=== PATIENT | male | born 1990 | race Caucasian/White ===

== ENCOUNTER 2023-03-31 22:40 | Emergency (ER) | payer BC, SELFPAY ==
--- NOTE | 2023-03-31 | ECG_ITS ---
Test Reason : HIGH BP Blood Pressure : / mmHG Vent. Rate : 054 BPM Atrial Rate : 054 BPM P-R Int : 144 ms QRS Dur : 100 ms QT Int : 396 ms P-R-T Axes : 049 003 -01 degrees QTc Int : 375 ms Sinus bradycardia with occasional Premature ventricular complexes Minimal voltage criteria for LVH, may be normal variant ( R in aVL ) Borderline ECG No previous ECGs available Referred By: Generic ED Physician Electronically Signed By:KYRIE LAINEZ
[2023-03-31 22:44] VITALS: BP 191/121; PULSE 63; RESP 18; TEMP 36.8; O2SAT 98; BMI 28.7
--- NOTE | 2023-03-31 23:20 | MHC.EDTECH ---
Patient brought into triage area,EKG was taken and signed by provider. Labs were obtained and sent to lab. patient brought back to waiting area
[2023-03-31 23:24] LABS: MANUAL DIFF FLAG NO
[2023-03-31 23:27] LABS: Basophils Percent Auto 0.6 % (0-2); Eosinophils Absolute Auto 0.1 X10*3/uL (0.0-0.4); Eosinophils Percent Auto 1.8 % (0-4); Hematocrit 41.6 % (42.0-52.0); Hemoglobin 14.7 g/dl (14.0-18.0); Imm Gran Abs Auto 0.01 X10*3/uL (0.00-0.03); Imm Gran Pct Auto 0.1 % (0.0-0.4); Lymphocytes Absolute Auto 2.9 X10*3/uL (1.2-4.9); Lymphocytes Percent Auto 40.6 % (20-40); Mean Corpuscular HGB Conc 35.3 g/dl (31.0-36.0); Mean Corpuscular Hemoglobin 28.9 pg (27.0-33.0); Mean Corpuscular Volume 81.9 fL (80.0-98.0); Mean Platelet Volume 9.5 fL (9.4-12.4); Monocytes Absolute Auto 0.5 X10*3/uL (0.1-1.2); Monocytes Percent Auto 7.2 % (2-11); Neutrophils Absolute Auto 3.6 x10*3/uL (2.0-8.3); Neutrophils Percent Auto 49.7 % (45-73); Platelet Count 271 X10*3/uL (160-400); Red Blood Count 5.08 X10*6/uL (4.60-5.80); Red Cell Distribution Width 12.7 % (11.0-16.0); White Blood Count 7.2 X10*3/uL (4.8-10.8)
[2023-03-31 23:41] LABS: Alanine Aminotransferase 19 U/L (0-40); Albumin Level 4.6 g/dL (3.5-5.0); Alkaline Phosphatase 102 U/L (39-117); Anion Gap 15 (12-20); Aspartate Amino Transferase 25 U/L (5-37); Bilirubin Total 0.7 mg/dL (0.0-1.0); Blood Urea Nitrogen 15 mg/dL (9-16); Calcium 9.9 mg/dL (8.4-10.2); Carbon Dioxide 25 mmol/L (22-29); Chloride 103 mmol/L (96-108); Creatinine Clr Calc Pharmacy 119.6; Estimated Glomerular Filt Rate > 60; Glucose Random 95 mg/dL (60-115); Potassium 3.2 mmol/L (3.3-5.1); Sodium 140 mmol/L (135-145); Total Protein 8.3 g/dL (6.5-8.0)
[2023-03-31 23:55] LABS: Troponin-I High Sensitivity < 2.7 ng/L (<3.5-35.0)
[2023-04-01 05:16] VITALS: BP 170/113; PULSE 60; RESP 12; O2SAT 97
--- OUTSIDE RECORDS SUMMARY | 2023-04-01 05:25 | XMS_ITS | Continuity of Care Document ---
Author Name Unknown Organization [facility] ter Address [address] [place] [id number]- Care Team Providers Care Data Security Coordinator Name Role Phone Sidra Culp MD, Manish Primary Care [facility] En[facility] Date(s): 08/30/22 - 08/31/[address] [id number] Encounter Diagnosis Tonsillar bleed(Final) - 08/31/22 Discharge Disposition: A-D/C Home Attending Physician: Carisa Lawton MD Admitting Physician: Carisa Lawton MD Referring Physician: Not on Staff, Referring MD Allergies, Adverse Reactions, Alerts No Known Allergies Immunizations Given and Recorded Vaccine Date Status Refusal Reason Varicella Virus Vaccine 10/26/10 Given Varicella Virus Vaccine 06/08/07 Given Tet/Diphth/Acel, Pertussis (oldterm) 06/08/07 Give n Meningococcal Conjugate Vaccine 06/08/07 Given influenza virus vaccine, inactivated 06/08/07 Give n tetanus-diphtheria toxoids (Td) 1 03/14/05 Given Measles/Mumps/Rubella Virus Vaccine 12/26/96 Given Measles/Mumps/Rubella Virus Vaccine 11/08/93 Given Poliovirus Vaccine, Inactivated 12/26/96 Given Poliovirus Vaccine, Inactivated 06/02/93 Given Poliovirus Vaccine, Inactivated 04/07/93 Given Poliovirus Vaccine, Inactivated 01/21/93 Given Diphth/Pertussis, Whl Cell/Tet(oldterm) 12/26/96 G iven Diphth/Pertussis, Whl Cell/Tet(oldterm) 02/01/94 G iven Diphth/Pertussis, Whl Cell/Tet(oldterm) 06/02/93 G iven Diphth/Pertussis, Whl Cell/Tet(oldterm) 04/07/93 G iven Diphth/Pertussis, Whl Cell/Tet(oldterm) 01/21/93 G iven Hepatitis B Vaccine (old term) 11/04/96 Given Hepatitis B Vaccine (old term) 07/28/96 Given Hepatitis B Vaccine (old term) 06/25/96 Given Haemophilus B Conj Vaccine (oldterm) 02/01/94 Give n Haemophilus B Conj Vaccine (oldterm) 06/02/93 Give n Haemophilus B Conj Vaccine (oldterm) 04/07/93 Give n Haemophilus B Conj Vaccine (oldterm) 01/21/93 Give n 1Admin Note: TD Medications Rima -D 24 Hour 1 tablet, By Mouth, Daily in AM, 0 Refills, Maintenance, 08/22/22 10:02:00 EDT, Partial fill upon patient request if the prescription is for a schedule II opioid drug. Start Date: 08/22/22 Status: Ordered Problem List Condition Confirmation Course Effective Dates Status Health St atus Informant Well adult Confirmed Active Vital Signs Most recent to oldest [Reference Range]: 1 2 3 Height 170 cm (08/30/22 11:45 PM) 170 cm (08/30/22 10:57 PM) Weight 77.9 kg (08/30/22 11:45 PM) 77.9 kg (08/30/22 10:57 PM) Oxygen Saturation [94-100 %] 98 % (08/31/22 4:15 AM) 98 % (08/31/22 4:00 AM) 98 % (08/31/22 3:45 AM) Pulse Rate [55-90 bpm] 96 bpm *H* (08/30/22 11:45 PM) 82 bpm (08/30/22 11:20 PM) 79 bpm (08/30/22 10:57 PM) Body Mass Index [18.5-24.99 kg/m2] 26.96 kg/m2 *H* (08/30/22 11:45 PM) 26.96 kg/m2 *H* (08/30/22 10:57 PM) Blood Pressure [90-138/55-84 mm Hg] 153/116mm Hg *H* (08/31/22 4:15 AM) 156/119mm Hg *H* (08/31/22 4:00 AM) 135/104mm Hg (08/31/22 3:45 AM) Respiratory Rate [16-30 br/min] 13 br/min *L* (08/31/22 4:15 AM) 15 br/min *L* (08/31/22 4:00 AM) 11 br/min *L* (08/31/22 3:45 AM) Temperature [96.8-100.4 DegF] 97.1 DegF (08/31/22 1:45 AM) 98.4 DegF (08/30/22 11:45 PM) 98.5 DegF (08/30/22 10:57 PM) Liters per Minute 6 L/min (08/31/22 2:00 AM) 6 L/min (08/31/22 1:45 AM) Mode of Delivery (Oxygen) Room air (08/31/22 4:15 AM) Room air (08/31/22 4:00 AM) Room air (08/31/22 3:45 AM) Blood pressure sites Arm, left (08/31/22 4:15 AM) Arm, left (08/31/22 4:00 AM) Arm, left (08/31/22 3:45 AM) Temperature Route Temporal (08/31/22 1:45 AM) Temporal (08/30/22 11:45 PM) Oral (08/30/22 10:57 PM) Weight Obtained Via Standing scale (08/30/22 10:57 PM) Hospital Progress note * Andie Gongora RN: PERFORM, SIGN, VERIFY Event Display: Progress Note Hospital Authored Date: Patient: DENNISE LEWIS Age: 31 years Sex: Male : 1990 Associated Diagnoses: None Author: Andie Gongora RN Findings Narrative/Incidental pt complaining of swollen tongue on the left. anesthesiologist DR Chilel called to come assess pt at bedside. DR Chilel is at bedside assessing pt. pt is cleared to be discharged. . Discharge Information Case Management Discharge Plan : Case Management Discharge Plan Data 08/31/2022 3:53 EDT Discharge Level of Care at Discharge Home/Long Term/Foster Care 08/25/2022 12:32 EDT Discharge Level of Care at Discharge Home/Long Term/Foster Care Note * Andie Gongora RN: PERFORM Event Display: Discharge/Transfer Note Hospital Authored Date: [id number] Nursing Discharge Note Entered On: 08/31/2022 3:53 EDT Performed On: 08/31/2022 3:53 EDT by Andie Gongora RN Nursing Discharge Note 2 Discharge Level of Care at Discharge : Home/Long Term/Foster Care Patient Left Unit Via : Wheelchair Patient Accompanied Off Unit with : Responsible adult DC Instructions Provided & Signed by Pt : Yes Patient Understands D/C Instructions : Yes Verbalized Understanding of D/C Plan By : Responsible adult Patient Instructions Discharge Signed : Yes Did Pt have Specialty Bed or Wound Vac : No Andie Gongora RN - 08/31/2022 3:53 EDT * Andie Gongora RN: PERFORM Event Display: Patient Education/Instruction Authored Date: [id number] Inpatient Adult Discharge Instructions [address] [address] Name: DENNISE LEWIS : 1990 Visit: 08/30/2022 22:51:00 Current Date: 08/31/2022 03:57 Account: [id number] Inpatient Adult Discharge Instructions We would like to thank you for allowing us to assist you with your healthcare needs. The following includes patient education materials and information regarding your injury/illness. Our entire staffstrives to provide an excellent experience for our patients and their families. PLEASE ENSURE YOU FOLLOW-UP PER THE INSTRUCTIONS BELOW! ?? YOUR OPINION IS IMPORTANT TO US! Please complete the survey you may receive by mail or email. Your feedback will be used to make improvements to the healthcare experiences of our patients and their families. Surveys are administered by [employer] ?? If further treatment with your primary care physician or another doctor is recommended, it is important for you to keep the appointment. Call your primary care physician or return to the Emergency Department immediately if your condition worsens, fails to improve, or new symptoms develop. If you need to find a doctor, you can call [facility] TV [employer] App for a referral at [phone] or toll free at [phone]) or log in to [email or web address].. ?? You can view and manage your care through the patient portal or by using a health care ciera of your choosing. [employer] is a website that allows you to securely view your medical information including your hospital discharge summary, office visit summaries, medications and follow-up visits. You can also request appointments, renew medications, and request access to your medical information using a health care ciera of your choosing, or just ask a question. You can enroll at [email or web address] or register during your next office visit. You have been discharged from [facility], Patient Care Unit: [facility]. If you have any questions regarding these instructions after you leave, please call us and we will be happy to assist you. [facility] Your Care Team Attending Physician Jered FRIEDMAN, Carisa Discharging Providers Jered FRIEDMAN, Carisa Reason for Your Visit General medical, Post surgical problem Your Diagnosis General medical Post surgical problem Tests Performed Below is a partial list of the tests performed during your hospitalization. You may have had other tests and procedures not included in this list. Please discuss all test results with your provider. Basic Metabolic Panel CBC w/ Differential COVID-19 (Novel Coronavirus), Rapid PCR Type and Screen Primary Care Provider Sidra Culp MD, Manish Advance Directive . Discharge Vitals Temperature: 97.1 DegF Height: 170 cm Pulse Rate:??96 bpm??High Weight: 77.9 kg Respiratory Rate:??15 br/min??Low Body Mass Index:??26.96 kg/m2??High Systolic Blood Pressure:??150 mm Hg??High Body surface area: 1.92 Diastolic Blood Pressure:??98 mm Hg??High ?? Oxygen Saturation: 100 % ?? Studies Pending All tests and labs ordered during this hospital stay have been completed unless listed below. Please discuss all pending results with your provider listed above in these instructions. ?? No incomplete studies found What to do next Instructions From Your Doctor Discharge Orders You Need to Schedule the Following Appointments Follow Up with??Carisa Lawton When:??Within 1-2 day: call to discuss follow up visit Why: follow up in 4 weeks Follow Up with??Manish Culp When:??In 0 days Where: [address] [place] [address], [place] [address]- Business (1) Discharge Medications DENNISE LEWIS :1990 Visit Date:08/30/2022 Medications: Please continue your medications until treatment is completed or stopped by your provider. Medications not listed below should be discontinued. Discuss any questions related to medications with your provider. What How Much When Instructions Next Dose Unchanged Fexofenadine-Pseudoephedrine (Rima -D 24 Hour) 1 tab(s) Oral Daily in the morning Test Results Below is a partial list of the most recent Laboratory test results done prior to this discharge. You may have had other tests and procedures not included in this list. Please discuss all test resultswith your provider. Basic Metabolic Panel (08/30/2022) ???Sodium - 139 mmol/L???Potassium - 3.7 mmol/L???Chloride - 101 mmol/L???Bicarbonate Level - 25 mmol/L???Anion Gap - 13???Glucose Level - 95 mg/dL???BUN - 16 mg/dL???Creatinine-Blood - 1.0 mg/dL???Estimated GFR Creatinine - 106 ML/MIN/1.73 M2???Calcium - 9.9 mg/dL CBC w/ Differential (08/30/2022) ???WBC - 10.5 k/mm3???RBC - 4.87 m/mm3???Hgb - 14.2 Gm/dL???Hct - 41.3 %???MCV - 84.8 femtoliters???MCH - 29.2 pg???MCHC - 34.4 g/dL???Platelet Count - 383 k/mm3???RDW-SD - 36.9 femtoliters???MPV - 9.4 femtoliters???Nucleated RBC (Automated) - 0.0 #/100 WBC'S???Abs. NRBC - 0.0 k/mm3???Abs. Neut - 6.0 k/mm3???Abs. Lymph - 3.0 k/mm3???Abs. [place] - 0.9 k/mm3???Abs. Eo - 0.6 k/mm3???Abs. Baso - 0.1 k/mm3???Neut % - 56.8 %???Lymph % - 28.3 %???[place] % - 8.7 %???Eos % - 5.5 %???Baso % - 0.5 %???Imm Gran - 0.2 %???Abs. Imm Gran - 0.0 k/mm3 COVID-19 (Novel Coronavirus), Rapid PCR (08/30/2022) ???COVID-19 by RT-PCR - NEGATIVE Type and Screen (08/30/2022) ???Blood Type - O Positive???Antibody Screen - Negative Allergies (NKA means No Known Allergies) NKA Problems Active Problems??(1) Well adult?? Education Materials Below is the list of Educational Leaflet Providered with your Discharge Instructions. Tonsillectomy, Post-Op Bleeding?? Valuables and Belongings I fully understand and agree that [facility] accepts no responsibility for all my personal property including clothing, toilet articles, radios, jewelry, dentures, hearing aids, rings, money, or any other property that is in my possession or is brought to me after admission. I understand certain valuables may be placed in a hospital safe for a short period of time. I understand that the hospital is not liable for loss or damage due to accident, fire, or other natural occurrence while said property is in the safe. I accept full responsibility for any personal property that I keep with me, and will not hold the hospital responsible in case of loss or disappearance. I acknowledge that i have been encouraged to send valuables and belongings home. ?? Date for Pt to Sign Valuables/Belongings: 08/30/22 23:25:00 ?? Other Discharge Information ? Case Management Discharge Plan?? Discharge Plan?? Discharge Level of Care at Discharge: Home/Long Term/Foster Care ?? Pulmonary Rehab Status?? Pulmonary Rehab Discharge Status?? Respiratory Rate:??15 br/min??Low ? Common Emergency Awareness Tips IS IT A STROKE? Act FAST and Check for these signs: FACE Does the face look uneven? ARM Does one arm drift down? SPEECH Does their speech sound strange? TIME Call at any sign of stroke ?? Heart Attack Signs Chest discomfort: Most heart attacks involve discomfort in the center of the chest and lasts more than a few minutes, or goes away and comes back. It can feel like uncomfortable pressure, squeezing, fullness or pain. Discomfort in upper body: Symptoms can include pain or discomfort in one or both arms, back, neck, jaw or stomach. Shortness of breath: With or without discomfort. Other signs: Breaking out in a cold sweat, nausea, or lightheaded. Remember, MINUTES DO MATTER. If you experience any of these heart attack warning signs, call to get immediate medical attention! ?? Smoking can increase your chances of developing chronic health problems and can cause harmful effects to other family members in your house. If you smoke, you are strongly encouraged to quit. Please call [facility] Link at [phone] or [phone]) or log in to [email or web address] for referrals to smoking cessation programs. ?? 020 Suicide & Crisis Lifeline is available 24/10 if you or someone you know needs to find a reason to keep living. By calling 326 you'll be connected to a skilled, trained counselor at a crisis center in your area. INPATIENT DISCHARGE INSTRUCTIONS SIGNATURE JAYA LEWIS DENNISE Location:[facility] Registration Date and Time:08/30/2022 22:51 EDT Primary Care Physician: Sidra Culp MD, Manish, Attending Physician: Carisa Lawton MD, I DENNISE LEWIS, have received the above patient education materials/instructions and have verbalized understanding. If ambulance or transport services are being used I further acknowledge being given a choice of service. ?? If you need to contact me, please call me at this number: . 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 [id number] Tonsillectomy, Post-Op Bleeding You have had surgery to remove your tonsils. Bleeding at the surgery site can happen after surgery.The healthcare provider can often control it using direct pressure or applying medicine to shrink the blood vessels. If this fails, you will need to return to the operating room for further treatment. Notify your healthcare provider at once or return to this hospital or surgical center if there aresigns of any further bleeding. Home care ??? Your throat will be sore. Throat pain after surgery improves over the first 7 to 10 days. It's normal to have more pain at the end of the first week before it finally goes away. ??? Soft foods will be easier to swallow. ??? Drink plenty of fluids to prevent dehydration. Fluids also help ease pain by keeping the area moist. You must continue to drink even though your throat hurts. ??? For pain relief, suck on ice cubes or frozen fruit pops, eat ice cream or sherbet, and drink cold liquids. ??? You may also use liquid acetaminophen. Don't take ibuprofen or aspirin. These may increase bleeding risk. Talk with your healthcare provider before taking acetaminophen if you have a history of chronic kidney or liver disease. If your healthcare provider??has prescribed pain medicine, take it as directed.? If you have sleep apnea, talk with your healthcare provider before taking any opioid medicines or medicine with codeine. ??? If antibiotics were prescribed, take these as dire cted until they are gone. ??? Don't overheat your home because it dries the air and may irritate throat tissues, especially at night. A cool-mist humidifier in the bedroom may help. ??? Don???t have contact with??people with colds or the flu during the recovery period. You may be more likely to getill during this time. ??? Smoking irritates the surgery site. If you smoke, this is a good time to stop. Talk with your healthcare provider about help with quitting. ??? Don't do heavy??exercise,??lifting, or straining for 2 weeks, or as directed by your healthcare provider. ?? Follow-up care Follow up with your healthcare provider as advised. ?? When to seek medical advice Call your healthcare provider right away if any of the following occur: ??? Nausea and vomiting ??? Persistent coughing ??? Minimal bleeding from the mouth ??? Fever of??100.4??F (38.3??C) or higher, or as directed by your healthcare provider ??? Increasing pain not controlled by pain medicines ??? Signs of dehydration: very dark urine, less urine, dry mouth Call 911 Call 911 if you have any of these symptoms: ??? Trouble speaking, swallowing, or breathing ??? Significant bleeding from the mouth ??? Lightheadedness, weakness ?? Last Reviewed Date: 2022 ?? 4527-7284 The [employer]. All rights reserved. This information is not intended as a substitute for professional medical care. Always follow your healthcare professional's instructions. ?? Patient Care team information Care Team Personnel Name: Manish Ambriz MD Position: S Outreach Member Role: PCP Address: Address: [address] [place] [address]- Name: Aletha Bull DO Position: [facility] Resident Member Role: ED Resident Address: Address: [address] [place] [address] [place] [address]- Name: Ariadna Denney RN Position: [facility] ED RN W/OE and Tasks Member Role: Patient Care Provider Name: Roman Estrada MD Position: [facility] ED Medicine MD Address: Address: [address] [place] [address]- Care Team Related Persons Name: NOLVIA AVINA Address: home [address] [place] [id number]
--- OUTSIDE RECORDS SUMMARY | 2023-04-01 05:25 | XMS_ITS | Continuity of Care Document ---
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 Name Role Phone Edy Quintana Primary Care Physician [phone] Encounter [facility] Date(s): 08/24/22 - 08/25/[address] [id number] Discharge Disposition: A-D/C Home Attending Physician: Ever Lindo MD, I Admitting Physician: Ever Lindo MD, I Referring Physician: Ever Lindo MD, I Allergies, Adverse Reactions, Alerts No Known Allergies [...] oldest [Reference Range]: 1 2 3 Height 170.1 cm (08/25/22 3:32 AM) 170.1 cm (08/24/22 11:46 PM) 170.1 cm (08/24/22 8:49 PM) Weight 78.2 kg (08/24/22 12:20 PM) 76.8 kg (08/22/22 10:15 AM) Oxygen Saturation [94-100 %] 99 % (08/25/22 11:00 AM) 100 % (08/25/22 7:00 AM) 99 % (08/25/22 3:32 AM) Pulse Rate [55-90 bpm] 88 bpm (08/25/22 11:00 AM) 96 bpm *H* (08/25/22 7:00 AM) 97 bpm *H* (08/25/22 3:32 AM) Body Mass Index [18.5-24.99 kg/m2] 27.03 kg/m2 *H* (08/24/22 12:20 PM) 26.54 kg/m2 *H* (08/22/22 10:15 AM) Blood Pressure [90-138/55-84 mm Hg] 138/77mm Hg (08/25/22 11:00 AM) 134/75mm Hg (08/25/22 7:00 AM) 132/86mm Hg (08/25/22 3:32 AM) Respiratory Rate [16-30 br/min] 18 br/min (08/25/22 11:00 AM) 18 br/min (08/25/22 7:00 AM) 18 br/min (08/25/22 3:32 AM) Temperature [96.8-100.4 DegF] 99.0 DegF (08/25/22 11:00 AM) 98.3 DegF (08/25/22 7:00 AM) 98 DegF (08/25/22 3:32 AM) Liters per Minute 2 L/min (08/24/22 3:45 PM) 2 L/min (08/24/22 3:30 PM) 5 L/min (08/24/22 2:45 PM) Mode of Delivery (Oxygen) Room air (08/25/22 11:00 AM) Room air (08/25/22 7:00 AM) Room air (08/25/22 3:32 AM) Blood pressure sites Arm, left (08/25/22 11:00 AM) Arm, left (08/25/22 7:00 AM) Arm, left (08/25/22 3:32 AM) Temperature Route Oral (08/25/22 11:00 AM) Oral (08/25/22 7:00 AM) Oral (08/25/22 3:32 AM) Dry Weight 78.2 kg (08/24/22 12:20 PM) 76.8 kg (08/22/22 10:15 AM) Weight Obtained Via Standing scale (08/24/22 12:20 PM) Patient/family stated (08/22/22 10:15 AM) Dry Weight Obtained Via Standing scale (08/24/22 12:20 PM) Patient/family stated (08/22/22 10:15 AM) History and physical note * Event Display: History and Physical Hospital Authored Date: Note * Event Display: Adult Preadmission Health Questionnaire Authored Date: * Amber Cash RN: PERFORM Event Display: Discharge/Transfer Note Hospital Authored Date: [id number] Nursing Discharge Note Entered On: 08/25/2022 12:32 EDT Performed On: 08/25/2022 12:32 EDT by Ambre Cash RN Nursing Discharge Note 2 Discharge Time : 08/25/2022 12:32 EDT Discharge Level of Care at Discharge : Home/Fdc/Foster Care Patient Left Unit Via : Ambulatory Patient Accompanied Off Unit with : Significant other DC Instructions Provided & Signed by Pt : Yes Patient Understands D/C Instructions : Yes Patient Instructions Discharge Signed : Yes Did Pt have Specialty Bed or Wound Vac : No Shreya SCHAFER, Amber - 08/25/2022 12:32 EDT * Cindy Jenkins RN: PERFORM Event Display: Patient Education/Instruction Authored Date: Inpatient Adult Discharge Instructions [address] [address] Name: DENNISE LEWIS : 1990 Visit: 08/24/2022 11:31:00 Current Date: 08/25/2022 11:41 Account: [id number] Inpatient Adult Discharge Instructions We would like [...] and their families. Surveys are administered by [employer] ?? If further treatment with your primary care physician or another doctor is recommended, it is important for you to keep the appointment. Call your primary care physician or return to the Emergency Department immediately if your condition worsens, fails to improve, or new symptoms develop. If you need to find a doctor, you can call [facility] [employer] for a referral at [phone] or toll free at [phone] ([phone]) or log in to [email or web address].. ?? You can view and manage your care through the patient portal or by using a health care ciera of your choosing. [employer] is a website that allows you to securely view your medical information including your hospital discharge summary, office visit summaries, medications and follow-up visits. You can also request appointments, renew medications, and request access to your medical information using a health care ciera of your choosing, or just ask a question. You can enroll at [email or web address] or register during your next office visit. You have been discharged from [facility], Patient Care Unit: SW6. If you have any questions regarding these instructions after you leave, please call us and we will be happy to assist you. [facility] Your Care Team Attending Physician Belgica FRIEDMAN, Ever Guadalupe Consulting Providers Belgica FRIEDMAN, Ever Guadalupe Discharging Providers Judge WHITLOCK, Isabel Cartagena Reason for Your Visit OBSTRUCTIVE SLEEP APNEAOVN DS CS Tests Performed Below is a partial list of the tests performed during your hospitalization. You may have had other tests and procedures not included in this list. Please discuss all test results with your provider. Primary Care Provider Edy Quintana Advance Directive . Discharge Vitals Temperature: 99 DegF Height: 170.1 cm Pulse Rate: 88 bpm Weight: 78.2 kg Respiratory Rate: 18 br/min Body Mass Index:??27.03 kg/m2??High Systolic Blood Pressure: 138 mm Hg Body surface area: 1.92 Diastolic Blood Pressure: 77 mm Hg ?? Oxygen Saturation: 99 % ?? Studies Pending All tests and labs ordered during this hospital stay have been completed unless listed below. Please discuss all pending results with your provider listed above in these instructions. ?? Pathology Tissue Request () What to do next Instructions From Your Doctor Discharge Orders Discharge Medications DENNISE LEWIS :1990 Visit Date:08/24/2022 Medications: Please continue your medications until treatment is completed or stopped by your provider. Medications not listed below should be discontinued. Discuss any questions related to medications with your provider. What How Much When Instructions Next Dose Unchanged Fexofenadine-Pseudoephedrine (Rima -D 24 Hour) 1 tab(s) Oral Daily in the morning 8am 08/26 Test Results Below is a partial list of the most recent Laboratory test results done prior to this discharge. You may have had other tests and procedures not included in this list. Please discuss all test resultswith your provider. Allergies (NKA means No Known Allergies) NKA Problems Active Problems??(1) Well adult?? Education Materials Below is the list of Educational Leaflet Providered with your Discharge Instructions. Valuables and Belongings I fully understand and agree that [facility] accepts no responsibility for all my [...] to send valuables and belongings home. ?? Review of Valuable and Belonging List: With patient Date for Pt to Sign Valuables/Belongings: 08/24/22 17:48:00 ?? Other Discharge Information ? Pulmonary Rehab Status?? Pulmonary Rehab Discharge Status?? Respiratory Rate: 18 br/min ? Common Emergency Awareness Tips IS IT [...] are strongly encouraged to quit. Please call [facility] [employer] [facility] at [phone] or [phone] ([phone]) or log in to [email or web address] for referrals to smoking cessation programs. ?? 988 Suicide & Crisis Lifeline is available 24/10 if you or someone you know needs to find a reason to keep living. By calling 508 you'll be connected to a skilled, trained counselor at a crisis center in your area. INPATIENT DISCHARGE INSTRUCTIONS SIGNATURE PAGE DENNISE LEWIS Location:[facility] Registration Date and Time:08/24/2022 11:31 EDT Primary Care Physician: Eyd Quintaan, Attending Physician: Ever Lindo MD, I, I DENNISE LEWIS, have received the above patient education materials/instructions and have verbalized understanding. If ambulance or transport services are being used I further acknowledge being given a choice of service. ?? If you need to contact me, please call me at this number: . Patient/Early Childhood Associate Teacher Name: Patient/Early Childhood Associate Teacher Signature: Relationship to Patient: Witness Name/Signature: Date: Hospital Progress note * Cindy Jenkins RN: PERFORM, SIGN, VERIFY Event Display: Progress Note Hospital Authored Date: Patient: DENNISE LEWIS Age: 31 years Sex: Male : 1990 Associated Diagnoses: None Author: Cindy Jenkins RN Findings Problem Related to Alteration in Comfort : Alteration in Comfort/new 08/25/2022 12:43 EDT Alteration in Comfort Related to Surgery Goals & Outcomes: Comfort Pt will report acceptable level of comfort & pain control, Pt will state importance of adhering to pain strategy regime, Pt will demonstrate necessary skills to manage pain Interventions Implemented: Comfort Assess pain using appropriate pain scale/tools, Assess aggravating factors & prevent them accordingly, Assess alleviating factors & promote them accordingly BH Goals/Interventions, Comfort Yes Comfort, Problem Start 08/24/2022 18:27 Reviewed plan with, Comfort Patient Patient Progression, Comfort Pt progressing according to plan Comfort, Problem Ongoing Yes . Evaluation Alert and oriented times 3. Pt up ad fritz in room. Pt is steady on his feet. Tolerated diet. Voids in the urinal. Rates pain 2/10. Discharge instructions reviewed with pt verbalizing undersanding and acceptance of info. PRN angio removed prior to discharge. * Amber Cash RN: PERFORM, SIGN, VERIFY Event Display: Progress Note Hospital Authored Date: Patient: DENNISE LEWIS Age: 31 years Sex: Male : 1990 Associated Diagnoses: None Author: Amber Cash RN Findings Narrative/Incidental DC instructions given to the pt ,DC accompanied by family ,ambulatory * Isabel Alves: PERFORM, SIGN, VERIFY Event Display: Progress Note Hospital Authored Date: [id number] Patient: DENNISE LEWIS Age: 31 years Sex: Male : 1990 Associated Diagnoses: None Author: Isabel Alves 31-year-old male, with history of severe KARINE, admitted s/p tonsillectomy on 08/24/[address] Lindo. Patient is doing well postoperatively. No significant desaturations overnight. Pain is well controlled with OTC anagelics. He is tolerating PO well. No oral cavity bleeding or dyspnea. VSS. No acuteconcerns this AM. Review of Systems Per HPI Physical Examination Temperature 98.3 (07:17) Systolic Blood Pressure 134 (07:17) Diastolic Blood Pressure 75 (07:17) Pulse 96 (07:17) SpO2 100 (07:17) Respiratory Rate 18 (07:17) Constitutional: Alert, in no distress. Resting comfortably in bed. Mental Status: Oriented to person, place and time. Head: Normocephalic, atraumatic. Ear, Nose and Throat: Surgical site healing as expected. No signs of bleeding. Mucous membranes moist. Trachea midline. Neck: Supple, full range of motion. Psychiatric: Normal mood and affect Impression and Plan 31-year-old male, with history of severe KARINE, admitted s/p tonsillectomy on 08/24/[address] Lindo. Patient is doing well postoperatively. Recommended advancing to soft diet as tolerated for the next 2 weeks. Recommended alternating acetaminophen and ibuprofen. Patient should avoid any exertion, be nding, lifting, or straining x 2 weeks postoperatively. He will be discharged today. Counseled to visit the emergency department with any concerns for bleeding. All questions asked were answered. Patient Care team information Care Team Personnel Name: Edy Quintana Position: S Outreach Member Role: PCP Address: Address: [address] [place] [id number]- Care Team Related Persons Name: NOLVIA AVINA Address: home [address] [place] [id number]
--- NOTE | 2023-04-01 05:37 | ED_ITS ---
HPI - General Adult General Chief complaint: General Medical Stated complaint: High blood pressure Time Seen by Provider: 04/01/23 05:31 Source: patient Mode of arrival: ambulatory Limitations: no limitations History of Present Illness HPI narrative: Patient comes to the emergency room accompanied by his . Patient complaining of high blood pressure. Patient states that he has had intermittent headaches, none today or yesterday. Denies any chest pain or shortness of breath, no visual changes. Patient states that since August when he had his tonsillectomy surgery done, he was told that his blood pressure was high. Patient has been trying to lose weight and to exercise to control the blood pressure. However he has not been checking it. Yesterday, patient but a blood pressure monitor, it read very high numbers. He tested the new monitor on his and several family members, all of their blood pressures were normal except his which were close to 200. Therefore he came to the hospital. Related Data Previous Rx's Medication Instructions Recorded amlodipine 10 mg tablet 10 mg PO DAILY #30 tabs 04/01/23 hydrochlorothiazide 12.5 mg tablet 12.5 mg PO DAILY #30 tabs 04/01/23 Allergies Allergy/AdvReac Type Severity Reaction Status Date / Time No Known Allergies Allergy Unverified 12/19/19 18:33 Review of Systems 2 Review of Systems: Constitutional : No Weight loss, No Fever, No Chills, No Night Sweats, No Fatigue, No Malaise ENT/Mouth : No Hearing loss, No Ear Pain, No Nasal Congestion, No Sinus Pain, No Hoarseness, No sore throat, No Rhinorrhea, No Swallowing Difficulty Eyes: No Eye Pain, No Swelling, No Redness, No Foreign Body, No Discharge, No Vision Changes Cardiovascular : No Chest Pain, No SOB, No Dyspnea on Exertion, No Orthopnea, No Edema, No Palpitations, complaining of high blood pressure Respiratory : No Cough, No Sputum, No Wheezing, No Smoke Exposure, No Dyspnea Gastrointestinal : No Nausea, No Vomiting, No Diarrhea, No Constipation, No abdominal Pain, No Hematochezia, No Melena Genitourinary : no irregular bleeding, No Dysuria, No Urinary Frequency, No Hematuria, No Urinary Incontinence, No Urgency, No Flank Pain, No Urinary Flow Changes, No Hesitancy Musculoskeletal : No joint pain, No Myalgias, No Joint Swelling Skin : No Skin Lesions, No rash Neuro : No Weakness, No Numbness, No Paresthesias, No Loss of Consciousness, No Dizziness, No Headache Psych : No Anxiety/Panic, No Depression, No SI/HI/AH/VH, No Social Issues, Heme/Lymph: No Bruising, No Bleeding,No Lymphadenopathy Endocrine : No Polyuria, No Polydipsia, No Temperature Intolerance [facility] Past Medical History Medical History (Updated 04/01/23 @ 05:42 by Fabiana Escalante MD) Hypertension Depression Social History Social History Smoked in Last 30 Days: No Use of substances other than those prescribed or required for medical reasons: No Advance Directives: No Advance Directives Information Provided: Yes Physical Exam ED Vital Signs: Vital Signs - 24 hr 03/31/23 22:44 04/01/23 05:16 04/01/23 06:24 Temperature 98.2 F Pulse Rate 63 60 55 Respiratory Rate 18 12 14 Blood Pressure 191/121 H 170/113 H 155/105 H Pulse Oximetry 98 97 Oxygen Delivery Method Room Air Room Air BMI result Body Mass Index 28.7 Const Other: Appearance: Alert. Oriented X3. No acute distress. Eyes: Pupils equal, round and reactive to light. ENT: Pharynx normal. Neck: Normal inspection. Neck supple. No lymph nodes noted. No crepitus CVS: Normal heart rate and rhythm. Pulses normal. Normal S1 and S2 Respiratory: No respiratory distress. Breath sounds normal. No Wheezing. No rales Abdomen: Soft and nontender. No rigidity. No distention. Skin: Skin warm and dry. Normal skin color. Normal skin turgor. Extremities: No lower extremity edema. No Lacerations. No Rash Neuro: Oriented X 3. No motor deficit. No sensory deficit. Moving all extremities. No slurred speech. CN 2 through 12 grossly intact Psych: calm, cooperative, normal affect Medications Administered Discontinued Medications Generic Name Dose Route Start Last Admin Trade Name Freq PRN Reason Stop Dose Admin Amlodipine Besylate 10 mg 04/01/23 05:30 04/01/23 05:55 Amlodipine Besylate 10 Mg Tablet PO 04/01/23 05:31 10 mg ONCE ONE Administration Protocol Medical Decision Making Medical Decision Making MDM Narrative: -interpretation of EKG: Sinus bradycardia with PVCs, heart rate 54, no ST segment depression, incomplete left bundle-branch block, nonspecific T-wave inversion in lead 3. QTC 375 -my interpretation of labs: Normal hematology, normal chemistry, troponin negative -seems that patient has had multiple blood pressure checks are significantly elevated throughout the last few months. Patient is not on any medication. Patient will be given the 1st dose of amlodipine here in the ED. -patient agreeable to start blood pressure medications. -patient's blood pressure improved to 155/105, patient instructed to follow-up with his primary care physician. Differential Diagnosis Differential Diagnoses: The differential diagnosis associated with the presentation includes (Hypertension) Admission/Observation Consideration of admission/observation: Escalation of care including admission/observation considered (Given patient's elevated blood pressure, patient was concerned on arrival.) Lab Data MDM Lab Attestation statement: I reviewed the patient's lab results. 03/31/23 23:19 03/31/23 23:19 Labs: Lab Results 03/31/23 Range/Units 23:19 WBC 7.2 (4.8-10.8) X10*3/uL RBC 5.08 (4.60-5.80) X10*6/uL Hgb 14.7 (14.0-18.0) g/dl Hct 41.6 L (42.0-52.0) % MCV 81.9 (80.0-98.0) fL MCH 28.9 (27.0-33.0) pg MCHC 35.3 (31.0-36.0) g/dl RDW 12.7 (11.0-16.0) % Plt Count 271 (160-400) X10*3/uL MPV 9.5 (9.4-12.4) fL Immature Gran % (Auto) 0.1 (0.0-0.4) % Neut % (Auto) 49.7 (45-73) % Lymph % (Auto) 40.6 H (20-40) % [place] % (Auto) 7.2 (2-11) % Eos % (Auto) 1.8 (0-4) % Baso % (Auto) 0.6 (0-2) % Lymph # (Auto) 2.9 (1.2-4.9) X10*3/uL [place] # (Auto) 0.5 (0.1-1.2) X10*3/uL Eos # (Auto) 0.1 (0.0-0.4) X10*3/uL Baso # (Auto) 0.0 (0.0-0.2) X10*3/uL Abs Immat Gran (auto) 0.01 (0.00-0.03) X10*3/uL Absolute Neuts (auto) 3.6 (2.0-8.3) x10*3/uL Absolute Nucleated RBC 0.000 (0.0-0.012) X10*3/uL Nucleated RBC % (auto) 0.0 (0.0-0.2) /100WBC Sodium 140 (135-145) mmol/L Potassium 3.2 L (3.3-5.1) mmol/L Chloride 103 (96-108) mmol/L Carbon Dioxide 25 (22-29) mmol/L Anion Gap 15 (12-20) BUN 15 (9-16) mg/dL Creatinine 0.93 (0.5-1.4) mg/dL Estim Creat Clear Calc 119.6 Estimated GFR > 60 Random Glucose 95 (60-115) mg/dL Calcium 9.9 (8.4-10.2) mg/dL Total Bilirubin 0.7 (0.0-1.0) mg/dL AST 25 (5-37) U/L ALT 19 (0-40) U/L Alkaline Phosphatase 102 (39-117) U/L Troponin I High Sens < 2.7 (<3.5-35.0) ng/L Total Protein 8.3 H (6.5-8.0) g/dL Albumin 4.6 (3.5-5.0) g/dL Independent Interpretation I performed an independent interpretation of an: EKG Critical Care Time Critical Care Time Critical Care Time: Yes Total Critical Care Time: 45 Attestation: I have personally provided critical care time. Time includes review of lab data, radiology results, discussion with consultants, and monitoring for potential decompensation. Intervention performed as documented. Discharge Plan Discharge Clinical Impression: Hypertension Patient Disposition: Home, Self-Care Instructions: Hypertension (ED) Additional Instructions: Please follow-up with your primary care physician tomorrow. If you have any worsening or new symptoms, please return to the emergency room or call 911 Prescriptions: New amlodipine 10 mg tablet 10 mg PO DAILY Qty: 30 0RF hydrochlorothiazide 12.5 mg tablet 12.5 mg PO DAILY Qty: 30 2RF
[2023-04-01] MEDS: amLODIPine Besylate 10 MG TABLET PO (05:55)
--- NOTE | 2023-04-01 06:12 | PC.NURSE ---
this rn assumed care of pt from waiting room @ 0500. this rn made dr gonzales aware of pt continued elevated BP. md to bedside pt placed on rehabilitation program coordinator
[2023-04-01 06:24] VITALS: BP 155/105; PULSE 55; RESP 14
== END 2023-04-01 07:13 | disposition home or self-care (01) ==
PROVIDERS: Emergency Provider Emergency Medicine
DX: I10 Essential (primary) hypertension (principal); R00.1 Bradycardia, unspecified; Z79.899 Other long term (current) drug therapy
CPT/HCPCS: 36415; 80053; 84484; 85025; 93005; 99283; 99284

== ENCOUNTER → 2023-03-31 23:11 | Outpatient (BNV) | payer BC, SELFPAY | PROVIDERS: Emergency Provider Emergency Medicine; Visit Provider Internal Medicine | DX: R00.1 Bradycardia, unspecified (principal); I10 Essential (primary) hypertension | CPT/HCPCS: 93010 ==